=== PATIENT | female | born 1970 | race African-American/Black ===

== ENCOUNTER 2016-10-20 05:29 | Emergency (ER) | payer SELFPAY ==
[~2016-10-20] VITALS: Ht 172.7 cm; Wt 81.6 kg
[~2016-10-20 05:29] MED LIST: ACETAMINOPHEN-1 EAC1 ORAL; ACETAMINOPHEN650 M2 ORAL; AMLODIPINE BESYL5 MG ORAL; ARICEPT10 MG ORAL; ASPIRIN-LOW81 MG ORAL; BETHANECHOL CHL50 MG ORAL; HYDROCHLOROTH12.5 MG ORAL; IBUPROFEN600 MG ORAL; LACTULOSE20 GM/301 ORAL; LEVOTHYROXINE50 MCG ORAL; MULTIVITAMINS1 EAC2 ORAL; NAMENDA10 MG ORAL; NKM; PROSCAR5 MG ORAL; ROBAXIN500 MG PO; SEROQUEL25 MG ORAL; TAMSULOSIN HCL0.4 MG PO; TRAMADOL HCL50 MG ORAL; TYLENOL325 MG ORAL; ZANTAC150 MG PO; ZOCOR20 MG PO; ZOFRAN4 MG PO
[2016-10-20 05:48] VITALS: BP 134/91
[2016-10-20] MEDS ORDERED: LIDOCAINE VISCO20 ML PO (05:55)
[2016-10-20] MEDS ORDERED: Bicillin LA 1.2 Million Units Syr IM ONE (06:00)
[2016-10-20] MEDS ORDERED: Lidocaine 2% Visc 15ml soln ORAL ONE (06:00)
[2016-10-20] MEDS ORDERED: Dexamethasone 4mg/ml vial IM ONE (06:00)
[2016-10-20 06:05] VITALS: BP 134/91
--- NOTE | 2016-10-20 07:02 | Emergency Room Report ---
History of Present Illness General Chief Complaint: Earache Source: Patient Present Illness HPI This is a 46-year-old female who presented to increased difficulty swallowing and a left-sided earache. Patient gradual onset of symptoms over the past few days. Patient had been taking Tamiflu without any relief. Patient was having increased difficulty swallowing. Patient denied any neck stiffness. Patient reported having pain to the left anterior portion of her neck. She not been vomiting or having any diarrhea. Allergies: Coded Allergies: ASPIRIN (Verified Allergy, Severe, 05/01/13) Patient History Past Medical History: see triage record Reviewed Nursing Documentation: PMH: Agreed, PSxH: Agreed Nursing Documentation-PMH Hx Gastrointestinal Problems: Yes - GERD Review of Systems All Other Systems: negative except mentioned in HPI Physical Exam Vital Signs Date Time Temp Pulse Resp B/P Pulse Ox O2 Delivery O2 Flow Rate FiO2 10/20/16 05:39 98.2 119 20 134/91 10/20/16 05:48 99 Room Air General Appearance: well appearing, no apparent distress, alert, GCS 15 Head: normocephalic, atraumatic ENT: hearing grossly normal, normal voice Neck: full range of motion, supple Respiratory: no respiratory distress, speaking full sentences Cardiovascular #1: normal inspection, normal peripheral pulses Gastrointestinal: normal inspection Musculoskeletal: normal inspection, no calf tenderness Neurologic: normal inspection, alert, oriented x3, responsive, normal gait Psychiatric: mood/affect normal Skin: no rash Medical Decision Making Diagnostic Impression: Primary Impression: Acute tonsillitis ER Course Patient presented for sore throat. Differential diagnosis included but was not limited to meningitis, exudative tonsillitis, retropharyngeal abscess, epiglottitis, strep pharyngitis. The patient was given IM penicillin. Patient was given IV Decadron. Patient given viscous lidocaine for pain. The patient did not show any evidence of acute abscess at this time. Patient is advised that reevaluation the next one to 2 days. The patient is advised to follow up with primary care doctor in 1-2 days. Patient is advised to return if any worsening condition or if any changes in status that are concerning. Last Vital Signs Date Time Temp Pulse Resp B/P Pulse Ox O2 Delivery O2 Flow Rate FiO2 10/20/16 06:05 98.2 112 20 134/91 99 Room Air Status: improved Disposition: HOME, SELF-CARE Condition: Stable Scripts Lidocaine HCl (Lidocaine HCl Viscous) 100 Ml Solution 20 ML PO EVERY 4 HOURS for For Pain, #100 ML Prov: Cody Leo 10/20/16 Patient Instructions: Tonsillitis Cody Leo Oct 20, 2016 07:02
== END 2016-10-20 06:04 | disposition home or self-care (01) ==
LOC: EMR 05:44
DX: J03.90 Acute tonsillitis, unspecified (principal); K21.9 Gastro-esophageal reflux disease without esophagitis; Z88.6 Allergy status to analgesic agent
CPT/HCPCS: 96372; 99283; J0570; J1100; J0561